=== PATIENT | male | born 1950 ===

== ENCOUNTER 2020-08-23 08:43 | Outpatient (CLI) | payer OTHER | END 2020-08-23 08:53 | disposition home or self-care (01) | LOC: TOM 08:43 | PROVIDERS: ATTEND Internal Medicine | DX: J44.9 Chronic obstructive pulmonary disease, unspecified (principal); I63.9 Cerebral infarction, unspecified; Z87.891 Personal history of nicotine dependence | CPT/HCPCS: 71260; Q9965 ==

== ENCOUNTER 2022-02-16 10:15 | Emergency (ER) | payer OTHER ==
[~2022-02-16] VITALS: Ht 185.4 cm; Wt 73.9 kg
== END 2022-02-16 14:16 | disposition home or self-care (01) ==
LOC: ER 10:15
DX: R30.0 Dysuria (principal); J43.9 Emphysema, unspecified; I10 Essential (primary) hypertension; Z86.73 Personal history of transient ischemic attack (TIA), and cerebral infarction without residual deficits; E78.5 Hyperlipidemia, unspecified; F17.210 Nicotine dependence, cigarettes, uncomplicated

== ENCOUNTER 2022-02-22 13:01 | Emergency (ER) | payer OTHER ==
[~2022-02-22] VITALS: Ht 193 cm; Wt 73.9 kg
[2022-02-22] MEDS ORDERED: CIPRO500 MG PO (15:22)
== END 2022-02-22 15:47 | disposition home or self-care (01) ==
LOC: ER 13:01
DX: R30.0 Dysuria (principal); Z87.442 Personal history of urinary calculi

== ENCOUNTER 2022-05-22 10:23 | Emergency (ER) | payer OTHER ==
[~2022-05-22] VITALS: Ht 185.4 cm; Wt 74.8 kg
[~2022-05-22 10:23] MED LIST: CIPRO500 MG PO
[2022-05-22] MEDS ORDERED: ATORVASTATIN CA20 MG PO (10:56)
[2022-05-22] MEDS ORDERED: KAPSPARGO SPRIN25 MG PO (10:56)
== END 2022-05-22 14:04 | disposition home or self-care (01) ==
LOC: ER 10:23
DX: N39.0 Urinary tract infection, site not specified (principal); R10.2 Pelvic and perineal pain; N41.8 Other inflammatory diseases of prostate; R30.0 Dysuria